=== PATIENT | male | born 1945 | race Caucasian/White ===

== ENCOUNTER → 2023-10-19 10:10 | Outpatient (CLI) | payer OTHER, SELFPAY ==
[2023-10-19 11:32] LABS: Alanine Aminotransferase 37 U/L (12-78); Albumin Level 3.9 g/dl (3.5-5.0); Alkaline Phosphatase 55 U/L (38-126); Aspartate Amino Transferase 46 U/L (17-59); Bilirubin,Direct 0.2 mg/dl (0.0-0.4); Bilirubin,Indirect 0.4 mg/dL (0.0-0.9); Bilirubin,Total 0.6 mg/dl (0.2-1.3); Bilirubin,Unconjugated 0.4 mg/dL (0.0-1.1); Total Protein,Serum 6.4 g/dl (6.3-8.2)
[2023-10-19 11:50] LABS: Free T4 (Free Thyroxine) 0.71 ng/dl (0.78-2.19)
[2023-10-19 12:04] LABS: Thyroid Stimulating Hormone 6.07 uIU/mL (0.465-4.68)
[2023-10-20 05:05] LABS: Triiodothyronine (T3) Free 2.7 pg/mL (2.0-4.4)
== END ==
LOC: LAB 10:16
PROVIDERS: Visit Provider Chiropractor
DX: E04.9 Nontoxic goiter, unspecified (principal); C22.8 Malignant neoplasm of liver, primary, unspecified as to type
CPT/HCPCS: 36415; 80076; 84439; 84443; 84481